=== PATIENT | female | born 1990 | race Caucasian/White ===

== ENCOUNTER 2017-06-03 06:10 | Emergency (ER) | payer OTHER ==
[2017-06-03] MEDS ORDERED: ONDANSETRON 4 MG/2 ML VIAL ONE ×2 (06:28→07:03)
[2017-06-03] MEDS ORDERED: FENTANYL CITR 100 MCG/2 ML ONE (06:37)
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
== END 2017-06-03 07:42 | disposition home or self-care (01) ==
LOC: ER 06:10
DX: T22.132A Burn of first degree of left upper arm, initial encounter (principal); T31.0 Burns involving less than 10% of body surface; X10.0XXA Contact with hot drinks, initial encounter; Y93.89 Activity, other specified; Y92.89 Other specified places as the place of occurrence of the external cause; Z91.040 Latex allergy status; Z91.048 Other nonmedicinal substance allergy status
CPT/HCPCS: 96374; 96375; 99284; J2405; J3010

== ENCOUNTER 2021-08-18 20:18 | Emergency (ER) | payer BC, OTHER ==
[2021-08-18 21:44] LABS: Urine Blood Negative (Negative); Urine Glucose Negative (Negative); Urine Protein Trace (Negative); Urine Specific Gravity >=1.030 (1.005-1.030)
[2021-08-18] MEDS ORDERED: NA CHLORIDE 0.9% 1,000 ML ONE (22:15)
[2021-08-18] MEDS ORDERED: ONDANSETRON 4 MG/2 ML VIAL ONE (22:15)
[2021-08-18 22:30] LABS: Hematocrit 39.2 % (36.0-45.0); Lymphocytes % 38.1 % (15.3-44.8); MCV 86.1 fL (80-100); MPV 8.8 fL (7.6-11.3); RBC Red Blood Cell Count 4.56 M/uL (3.86-4.86)
[2021-08-18 22:41] LABS: Albumin 3.8 g/dL (3.4-5.0); Bilirubin Total 0.6 mg/dL (0.2-1.0); Potassium 3.5 mmol/L (3.5-5.1); Protein, Total 7.9 g/dL (6.4-8.2)
--- NOTE | 2021-08-18 23:30 | ER ---
Nurse's Notes [facility] Name: Tanya Iniguez Age: 30 yrs Sex: Female : 1990 Arrival Date: 08/18/2021 Time: 20:23 Bed 25 Private MD: Diagnosis: Vomiting;Diarrhea, unspecified Presentation: 08/18 21:08 Chief complaint: Patient states: This morning I started feeling nauseous, vomiting, and jb4 diarrhea. It progressively got worse and now I am having body aches. Coronavirus screen: Client presents with at least one sign or symptom that may indicate coronavirus-19. Provider contacted for isolation considerations. Ebola Screen: No symptoms or risks identified at this time. Initial Sepsis Screen: Does the patient meet any 2 criteria? No. Patient's initial sepsis screen is negative. Does the patient have a suspected source of infection? Yes: Acute abdominal pain. Risk Assessment: Do you want to hurt yourself or someone else? Patient reports no desire to harm self or others. Onset of symptoms was August 18, 2021. Transition of care: patient was not received from another setting of care. 21:08 Method Of Arrival: Ambulatory jb4 21:08 Acuity: DICK 3 jb4 Triage Assessment: 21:12 General: Appears in no apparent distress. uncomfortable, Behavior is calm, cooperative, jb4 appropriate for age. Pain: Denies pain. Neuro: Level of Consciousness is awake, alert, obeys commands, Oriented to person, place, time, situation. Cardiovascular: Patient's skin is warm and dry. Respiratory: Airway is patent Respiratory effort is even, unlabored, Respiratory pattern is regular, symmetrical. GI: Abdomen is non-distended, obese, Reports diarrhea, nausea, vomiting. Derm: Skin is intact, Skin is pink, warm \T\ dry. Musculoskeletal: Circulation, motion, and sensation intact. Range of motion: intact in all extremities. Historical: - Allergies: 21:10 Latex, Natural Rubber; jb4 - Home Meds: 21:10 None [Active]; jb4 - PMHx: 21:10 PCOS; jb4 - PSHx: 21:10 None; jb4 - Immunization history:: Adult Immunizations up to date. - Social history:: Smoking status: Patient denies any tobacco usage or history of. Screenin:40 Abuse screen: Denies threats or abuse. Nutritional screening: No deficits noted. jb4 Tuberculosis screening: No symptoms or risk factors identified. Fall Risk None identified. Assessment: 23:40 Reassessment: Patient appears in no apparent distress at this time. Patient and/or jb4 family updated on plan of care and expected duration. Pain level reassessed. Patient is alert, oriented x 3, equal unlabored respirations, skin warm/dry/pink. Patient denies pain at this time. Patient states feeling better. Patient states symptoms have improved. Vital Signs: 21:08 BP 119 / 86; Pulse 86; Resp 16; Temp 97.6(TE); Pulse Ox 97% on R/A; Weight 94.8 kg (R); jb4 Height 5 ft. 1 in. (154.94 cm) (R); Pain 0/10; 23:40 BP 107 / 82; Pulse 84; Resp 16; Pulse Ox 97% on R/A; Pain 0/10; jb4 21:08 Body Mass Index 39.49 (94.80 kg, 154.94 cm) jb4 ED Course: 20:23 Patient arrived in ED. bp1 21:10 Triage completed. jb4 21:10 Arm band placed on right wrist. jb4 21:41 Alverto Cook NP is PHCP. pm1 21:41 Rodger Terrazas MD is Attending Physician. pm1 22:03 Joycelyn Goodman, EDITH is Primary Nurse. bb 22:08 Inserted saline lock: 20 gauge in right antecubital area, using aseptic technique. mw2 Blood collected. 22:13 Flu Sent. mw2 22:13 CBC with Diff Sent. mw2 22:13 CMP Sent. mw2 22:13 Lipase Sent. mw2 23:40 Patient has correct armband on for positive identification. Bed in low position. Call jb4 light in reach. Side rails up X 1. Client placed on continuous cardiac and pulse oximetry monitoring. NIBP monitoring applied. 23:40 Assist provider with bone marrow aspiration. IV discontinued, intact, bleeding jb4 controlled, No redness/swelling at site. Pressure dressing applied. Administered Medications: 22:24 Drug: NS 0.9% 1000 ml Route: IV; Rate: 1 bolus; Site: right antecubital; bb 23:41 Follow up: Response: No adverse reaction; IV Status: Completed infusion; IV Intake: jb4 1000ml 22:24 Drug: Zofran (Ondansetron) 4 mg Route: IVP; Site: right antecubital; 23:41 Follow up: Response: No adverse reaction; Marked relief of symptoms; Nausea is decreasedjb4 Medication: 23:40 VIS not applicable for this client. jb4 Intake: 23:41 IV: 1000ml; Total: 1000ml. jb4 Outcome: 23:29 Discharge ordered by . pm1 23:40 Discharged to home ambulatory, with family. jb4 23:40 Condition: stable 23:40 Discharge instructions given to patient, Instructed on discharge instructions, follow up and referral plans. medication usage, Demonstrated understanding of instructions, follow-up care, medications, Prescriptions given X 1. 23:42 Patient left the ED. jb4 Signatures: Joycelyn Goodman, RN RN bb Alverto Cook, CHRISTIAN[employer] SALES MANAGEMENT INTERN pm1 Lizandro Ho RN RN jb4 Puneet Damian mw2 Gayle Harris [facility]
--- NOTE | 2021-08-18 23:30 | EDPHYS ---
Physician Documentation [facility] Name: Tanya Iniguez Age: 30 yrs Sex: Female : 1990 Arrival Date: 08/18/2021 Time: 20:23 Bed 25 Private MD: ED Physician Rodger Terrazas HPI: 08/18 21:49 This 30 yrs old Female presents to ER via Ambulatory with complaints of pm1 Nausea/Vomiting/Diarrhea. 21:49 The patient presents to the emergency department with nausea, vomiting, diarrhea. pm1 Onset: The symptoms/episode began/occurred this morning. Possible causes: unknown. The symptoms are aggravated by food , The symptoms are alleviated by nothing. Associated signs and symptoms: Pertinent negatives: abdominal pain, dysuria, fever. Severity of symptoms: in the emergency department the symptoms are unchanged. The patient has not recently seen a physician. Historical: - Allergies: 21:10 Latex, Natural Rubber; jb4 - Home Meds: 21:10 None [Active]; jb4 - PMHx: 21:10 PCOS; jb4 - PSHx: 21:10 None; jb4 - Immunization history:: Adult Immunizations up to date. - Social history:: Smoking status: Patient denies any tobacco usage or history of. ROS: 21:49 Constitutional: Negative for fever, chills, and weight loss, Cardiovascular: Negative pm1 for chest pain, palpitations, and edema, Respiratory: Negative for shortness of breath, cough, wheezing, and pleuritic chest pain. 21:49 Back: Negative for injury and pain, MS/Extremity: Negative for injury and deformity, Skin: Negative for injury, rash, and discoloration, Neuro: Negative for headache, weakness, numbness, tingling, and seizure. 21:49 Abdomen/GI: Positive for nausea, vomiting, and diarrhea, Negative for abdominal pain. 21:49 All other systems are negative. Exam: 21:49 Constitutional: This is a well developed, well nourished patient who is awake, alert, pm1 and in no acute distress. Head/Face: Normocephalic, atraumatic. 21:49 Back: No spinal tenderness. No costovertebral tenderness. Full range of motion. Skin: Warm, dry with normal turgor. Normal color with no rashes, no lesions, and no evidence of cellulitis. 21:49 MS/ Extremity: Pulses equal, no cyanosis. Neurovascular intact. Full, normal range of motion. 21:49 Cardiovascular: Exam negative for acute changes, Rate: normal, Rhythm: regular, Pulses: no pulse deficits are appreciated. 21:49 Respiratory: Exam negative for acute changes, respiratory distress, shortness of breath, Breath sounds: are clear throughout. 21:49 Abdomen/GI: Inspection: abdomen appears normal, Palpation: abdomen is soft and non-tender, in all quadrants. 21:49 Neuro: Exam negative for acute changes, Orientation: is normal, Mentation: is normal, Motor: is normal, moves all fours. Vital Signs: 21:08 BP 119 / 86; Pulse 86; Resp 16; Temp 97.6(TE); Pulse Ox 97% on R/A; Weight 94.8 kg (R); jb4 Height 5 ft. 1 in. (154.94 cm) (R); Pain 0/10; 23:40 BP 107 / 82; Pulse 84; Resp 16; Pulse Ox 97% on R/A; Pain 0/10; jb4 21:08 Body Mass Index 39.49 (94.80 kg, 154.94 cm) jb4 MDM: 21:43 Patient medically screened. [facility] 23:29 Data reviewed: vital signs. Data interpreted: Pulse oximetry: on room air is 97 %. pm1 Interpretation: normal. Counseling: I had a detailed discussion with the patient and/or guardian regarding: the historical points, exam findings, and any diagnostic results supporting the discharge/admit diagnosis, lab results, the need for outpatient follow up, to return to the emergency department if symptoms worsen or persist or if there are any questions or concerns that arise at home. 08/18 21:44 Order name: Urine Dipstick-Ancillary; Complete Time: 21:49 EDMS 08/18 21:55 Order name: CBC with Diff; Complete Time: 22:51 pm1 08/18 21:55 Order name: CMP; Complete Time: 22:51 pm1 08/18 21:55 Order name: Lipase; Complete Time: 22:51 pm1 08/18 21:55 Order name: COVID-19 SARS RT PCR (Document "Date of Onset" if Symptomatic); Complete pm1 Time: 23:28 08/18 21:45 Order name: Urine Dipstick-Ancillary (obtain specimen); Complete Time: 21:45 mw2 08/18 21:45 Order name: Urine Test (obtain specimen); Complete Time: 21:45 mw2 08/18 21:55 Order name: IV Saline Lock; Complete Time: 22:13 pm1 08/18 21:55 Order name: Labs collected and sent; Complete Time: 22:13 pm1 08/18 21:55 Order name: Flu; Complete Time: 22:51 pm1 Administered Medications: 22:24 Drug: NS 0.9% 1000 ml Route: IV; Rate: 1 bolus; Site: right antecubital; bb 23:41 Follow up: Response: No adverse reaction; IV Status: Completed infusion; IV Intake: jb4 1000ml 22:24 Drug: Zofran (Ondansetron) 4 mg Route: IVP; Site: right antecubital; bb 23:41 Follow up: Response: No adverse reaction; Marked relief of symptoms; Nausea is decreasedjb4 Disposition Summary: 08/18/21 23:29 Discharge Ordered Location: Home pm1 Problem: new pm1 Symptoms: have improved pm1 Condition: Stable pm1 Diagnosis - Vomiting pm1 - Diarrhea, unspecified pm1 Followup: pm1 - With: Emergency Department - When: As needed - Reason: Worsening of condition Followup: pm1 - With: Private Physician - When: 2 - 3 days - Reason: Recheck today's complaints, Continuance of care, Re-evaluation by your physician Discharge Instructions: - Discharge Summary Sheet pm1 - Food Choices to Help Relieve Diarrhea, Adult pm1 - Diarrhea, Adult pm1 - Viral Gastroenteritis, Adult pm1 - Vomiting, Adult pm1 Forms: - Medication Reconciliation Form pm1 - Thank You Letter pm1 - Antibiotic Education pm1 - Prescription Opioid Use pm1 Prescriptions: - ondansetron 4 mg Oral tablet,disintegrating - place 1 tablet by TRANSLINGUAL route every 8 hours As needed; 15 tablet; pm1 Refills: 0, Product Selection Permitted Signatures: Dispatcher [employer] Rodger Carney MD MD cha Ballard, Brenda, RN RN bb Alverto Cook, [employer] OPERATOR [employer] OPERATOR pm1 Lizandro Ho RN RN jbPuneet Quigley mw2
[2021-08-19 00:45] VITALS: TEMP 97.6; O2SAT 97
[2021-08-19 00:46] VITALS: BP 107/82
== END 2021-08-18 23:42 | disposition home or self-care (01) ==
LOC: ER 20:18
DX: R11.2 Nausea with vomiting, unspecified (principal); R19.7 Diarrhea, unspecified; Z20.822 Contact with and (suspected) exposure to COVID-19; Z91.040 Latex allergy status
CPT/HCPCS: 85025; 36415; 81003; 83690; 80053; 87804 ×2; U0003; J7030; J2405; 96361; 96374; 99284

== ENCOUNTER → 2023-02-09 | Emergency (ER) | payer BC, SELFPAY ==
[~2023-02-09] MED LIST: IBUPROFEN 400 MG TAB ONE
--- OUTSIDE RECORDS SUMMARY | 2023-02-09 15:26 | XMS REPORT | Continuity of Care Document ---
Author Name Unknown Address [address] [facility] [address] [place] [address] [facility] thconnect Address [address] [facility] [facility] [address] [place] [address] Care Team Providers Care Manager Of Patient Name Role Phone Pcp, Patient Does Not Have A Primary Care Physic jason Latrice Ramirez Attending Clinician LATRICE AYALA Attending Clinician Unavailable Doctor Unassigned, New Alluwe Attending Clinician U SALLY Neal Attending Clinician Unavailable Payers Payer Name Policy Type Policy Number Effective Date Expirati on Date Source [employer] O [id number] 2017 00:00:00 Allergies, Adverse Reactions, Alerts Allergy Name Allergy Type Status Severity Reaction(s) Onset Date Inactive Date Treating Clinician Comments Source LATEX, NATURAL RUBBER Drug Class Active Dizziness 08-18 00:00: 00 [facility] Latex, Natural Rubber Propensi ty to adverse reaction s Active Swelling 08-18 00:00: 00 [facility] NO KNOWN ALLERGIE S Drug Class Active [facility] Social History Social Habit Start Date Stop Date Quantity Comments Source [facility] Tobacco use and exposure 2022-10-01 00:00:00 2022-10-01 00:00:00 Smokeless tobacco non-user [facility] Alcohol intake 2022-10-01 00:00:00 2022-10-01 00:00:00 Lifetime non-drinker (finding) [facility] History of Social function 2022-10-01 00:00:00 2022-10-01 00:00:00 [facility] Exposure to SARS-CoV-2 (event) 2020-05-05 00:00:00 2020-06-04 00:22:00 Not sure [facility] Sex Assigned At 1990 00:00:00 1990 00:00:00 [facility] Smoking Status Start Date Stop Date Source Tobacco smoking consumption unknown [facility] Never smoked tobacco [facility] Medications Ordered Medication Name Filled Medication Name Start Date Stop Date Current Medication? Ordering Clinician Indication Dosage Frequency Signature (SIG) Comments Components Source ondansetron 8 mg tablet 10-01 00:00: 00 Yes [id number] 8mg Take 1 tablet by mouth every 8 (eight) hours as needed for Nausea and Vomiting (N/V). [facility] ondansetron 8 mg tablet 10-01 00:00: 00 Yes [id number] 8mg Take 1 tablet by mouth every 8 (eight) hours as needed for Nausea and Vomiting (N/V). [facility] UBRELVY 100 mg Tab 09-08 00:00: 00 Yes 100mg Take 1 tablet by mouth as needed. [facility] UBRELVY 100 mg Tab 09-08 00:00: 00 Yes 100mg Take 1 tablet by mouth as needed. [facility] metformin ER 500 mg 24 hr tablet 07-28 00:00: 00 Yes 500mg Take 1 tablet by mouth in the morning and 1 tablet in the evening. [facility] metformin ER 500 mg 24 hr tablet 07-28 00:00: 00 Yes 500mg Take 1 tablet by mouth in the morning and 1 tablet in the evening. [facility] chlorhexidi ne 0.12 % mouthwash 06-04 00:00: 00 10-01 00:00 :00 No [id number] 15mL Swish and spit out 15 mL 2 (two) times daily. [facility] chlorhexidi ne 0.12 % mouthwash 06-04 00:00: 00 10-01 00:00 :00 No [id number] 15mL Swish and spit out 15 mL 2 (two) times daily. [facility] Vital Signs Vital Name Observation Time Observation Value Comments Jose Manuel stewart Systolic blood pressure 2022-10-01 17:48:00 126 mm[Hg] [facility] Diastolic blood pressure 2022-10-01 17:48:00 86 mm[Hg] [facility] Heart rate 2022-10-01 17:47:00 91 /min [facility] Body temperature 2022-10-01 17:47:00 36.22 Anne [facility] Body height 2022-10-01 17:47:00 154.9 cm [facility] Body weight 2022-10-01 17:47:00 92.579 kg [facility] BMI 2022-10-01 17:47:00 38.56 kg/m2 [facility] Oxygen saturation in Arterial blood by Pulse oximetry 2022-10-01 17:47:00 95 /min [facility] Procedures Procedure Date / Time Performed Performing Clinicia n Source POCT TEST 2022-10-01 18:10:00 Ana Ayala [facility] Encounters Start Date/Time End Date/Time Encounter Type Admission Type Attending Clinicians Care Facility Care Department Encounter ID Source 2020-12-15 13:57:13 Emergency [facility] [id number] [facility] 2022-10-01 12:30:00 2022-10-01 13:00:00 [facility] [id number] [facility] 2022-10-01 12:30:00 2022-10-01 12:30:00 Outpatient R LATRICE AYALA [facility] [id number] [facility] 2020-06-25 14:45:00 2020-06-25 14:45:00 Outpatient R [facility] [id number] [facility] 2019-09-03 00:00:00 2019-09-03 00:00:00 Patient Secure Msg Doctor Unassigned, New Alluwe [facility] 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 [facility] [id number] [facility] 2019-08-31 08:15:00 2019-08-31 08:15:00 Outpatient Siri PRO SALLY [facility] [id number] [facility] Results Test Description Test Time Test Comments Results Result Co mments [id number] 18:10:00* Test Item Value Reference Range Interpretation Comme nts POCT PREG (test code = 1605) Negative On board controls acceptable with C Line (test code = 3574) Yes POCT PREG LOT # (test code = 3575) [id number] POCT PREG TEST DATE ( test code = 3576) 11-02-23 Lab Interpretation (test cod e = [id number]) Normal [facility]
[2023-02-09 16:31] LABS: SARS-CoV-2 Antigen Rapid Res Negative (Negative)
--- NOTE | 2023-02-09 17:03 | ER ---
Nurse's Notes [facility] Name: Tanya Iniguez Age: 32 yrs Sex: Female : 1990 Arrival Date: 02/09/2023 Time: 15:22 Bed IW2 Private MD: Diagnosis: Streptococcal pharyngitis;Fever, unspecified Presentation: 02/09 15:35 Method Of Arrival: Ambulatory ll1 15:47 Chief complaint: Patient states: Cough, congestion, fever, sore throat since last ll1 night. Kid has strep right now. + N/V. Coronavirus screen: Client denies travel out of the [place] in the last 14 days. congestion, cough unrelated to allergies, fatigue, fever, nausea, vomiting. Client presents with at least one sign or symptom that may indicate coronavirus-19. Standard/surgical mask placed on the client. Ebola Screen: Patient denies travel to an Ebola-affected area in the 21 days before illness onset. Initial Sepsis Screen: Does the patient meet any 2 criteria? Temp <36.0*C (96.8*F)) or > 38.3*C (100.9*F). HR > 90 bpm. Yes Does the patient have a suspected source of infection? Yes: Productive cough/pneumonia. Risk Assessment: Do you want to hurt yourself or someone else? Patient reports no desire to harm self or others. Onset of symptoms was February 08, 2023. 15:47 Acuity: DICK 3 ll1 Triage Assessment: 15:35 General: Appears uncomfortable, Behavior is calm, cooperative, appropriate for age. ll1 General: Reports fever for fatigue for. EENT: Reports nasal congestion. Respiratory: Reports cough that is. Historical: - Allergies: 15:35 Latex; ll1 - PMHx: 15:35 Migraine; PCOS; ll1 - Immunization history:: Adult Immunizations up to date. - Family history:: not pertinent. - Hospitalizations: : No recent hospitalization is reported. Assessment: 17:23 Reassessment: No changes from previously documented assessment. Patient and/or family ll1 updated on plan of care and expected duration. Pain level reassessed. Vital Signs: 15:47 BP 156 / 105; Pulse 135; Resp 20; Temp 103.1; Pulse Ox 98% on R/A; ll1 ED Course: 15:27 Patient arrived in ED. mg5 15:29 Mukul Ambrose MD is Attending Physician. rn 15:35 Arm band placed on. ll1 15:49 Triage completed. 1 15:55 SARS RAPID Sent. ll1 15:55 Flu Sent. ll1 Administered Medications: 15:55 Drug: Ibuprofen PO 800 mg PO once Route: PO; ll1 Outcome: 17:02 Discharge ordered by . rn 17:23 Patient left the ED. 1 17:23 Discharged to home ambulatory, [facility] 17:23 Condition: stable 17:23 Discharge instructions given to patient, Instructed on discharge instructions, follow up and referral plans. medication usage, Demonstrated understanding of instructions, follow-up care, medications, Prescriptions given X 1, Signatures: Mukul Ambrose MD MD rn Lewis, Lynsay, RN RN [facility] Lindsey Flores mg5
--- NOTE | 2023-02-09 17:03 | EDPHYS ---
Physician Documentation [facility] Name: Tanya Iniguez Age: 32 yrs Sex: Female : 1990 Arrival Date: 02/09/2023 Time: 15:22 Bed IW2 Private MD: ED Physician Mukul Ambrose HPI: 02/09 15:53 This 32 yrs old Female presents to ER via Ambulatory with complaints of Flu Symptoms. rn 15:53 The patient reports fever, that was measured at 103 degrees Fahrenheit. rn 15:53 Onset: The symptoms/episode began/occurred last night. Modifying factors: The patient rn has had contact with sick other child. Associated signs and symptoms: Pertinent positives: chills, cough, sore throat, Pertinent negatives: abdominal pain, altered mental status, diarrhea, hemoptysis, skin rash, shortness of breath, swelling, vomiting. Severity of symptoms: At their worst the symptoms were moderate in the emergency department the symptoms are unchanged. The patient has experienced similar episodes in the past. The patient has not recently seen a physician. Patient reports fever since last night, Tmax 103.1, associated with headache/sore throat, cough, myalgias, chills. No shortness of breath. No chest pain. No abdominal pain.. Historical: - Allergies: 15:35 Latex; ll1 - PMHx: 15:35 Migraine; PCOS; ll1 - Immunization history:: Adult Immunizations up to date. - Family history:: not pertinent. - Hospitalizations: : No recent hospitalization is reported. ROS: 15:53 Constitutional: Negative for fever, chills, and weight loss, Eyes: Negative for injury, rn pain, redness, and discharge, ENT: + sore throat Neck: Negative for injury, pain, and swelling, Cardiovascular: Negative for chest pain, palpitations, and edema, Respiratory: + cough Abdomen/GI: Negative for abdominal pain, nausea, vomiting, diarrhea, and constipation, Back: Negative for injury and pain, MS/Extremity: Negative for injury and deformity, Skin: Negative for injury, rash, and discoloration, Neuro: Negative for numbness, tingling, and seizure, Exam: 15:53 Constitutional: This is a well developed, well nourished patient who is awake, alert, rn and in no acute distress. Head/Face: Normocephalic, atraumatic. ENT: Mild pharyngeal erythema, uvula midline, no peritonsillar abscess, no stridor Neck: Trachea midline, no masses palpated, and no cervical lymphadenopathy. Supple, full range of motion without nuchal rigidity, or vertebral point tenderness. No Meningismus. Cardiovascular: Tachycardic, regular Respiratory: No increased work of breathing, no retractions or nasal flaring. Neuro: Awake and alert, GCS 15 Vital Signs: 15:47 BP 156 / 105; Pulse 135; Resp 20; Temp 103.1; Pulse Ox 98% on R/A; ll1 MDM: 15:29 Patient medically screened. rn 16:56 Differential diagnosis: viral Infection, bacterial infection, URI. Data reviewed: vital rn signs, nurses notes, lab test result(s), and as a result, I will discharge patient. 17:01 Counseling: I had a detailed discussion with the patient and/or guardian regarding the rn historical points, exam findings, and any diagnostic results supporting the discharge/admit diagnosis, lab results, the need for outpatient follow up, to return to the emergency department if symptoms worsen or persist or if there are any questions or concerns that arise at home. Special discussion: I discussed with the patient/guardian in detail that at this point there is no indication for admission to the hospital. It is understood, however, that if the symptoms persist or worsen the patient needs to return immediately for re-evaluation. 02/09 15:30 Order name: Flu; Complete Time: 16:55 rn 02/09 15:30 Order name: SARS RAPID; Complete Time: 16:48 rn 02/09 15:50 Order name: Strep; Complete Time: 16:55 ll1 Administered Medications: 15:55 Drug: Ibuprofen PO 800 mg PO once Route: PO; ll1 Disposition Summary: 02/09/23 17:02 Discharge Ordered Notes: Location: Home rn Problem: new rn Symptoms: have improved rn Condition: Stable rn Diagnosis - Streptococcal pharyngitis rn - Fever, unspecified rn Followup: rn - With: Private Physician - When: As needed - Reason: Recheck today's complaints, Re-evaluation by your physician Discharge Instructions: - Discharge Summary Sheet rn - Fever, Adult rn - Strep Throat, Adult rn Forms: - Medication Reconciliation Form rn - Thank You Letter rn - 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
[2023-02-09 21:22] VITALS: BP 156/105; TEMP 103.1; O2SAT 98
== END ==
LOC: ER 15:22
DX: J02.0 Streptococcal pharyngitis (principal); Z11.52 Encounter for screening for COVID-19
CPT/HCPCS: 36415; 87081; 87804; 87811; 99283